=== PATIENT | male | born 1980 | race Two or more races ===

== ENCOUNTER 2018-06-20 16:23 | Emergency (ER) | payer OTHER ==
[~2018-06-20] VITALS: Ht 193 cm; Wt 85.7 kg
[2018-06-20] MEDS ORDERED: PROTONIX40 MG PO (23:32)
[2018-06-20] MEDS ORDERED: CARAFATE1 GM/10 ML PO (23:32)
[2018-06-20] MEDS ORDERED: CARAFATE1 GM PO (23:32)
[2018-06-20] MEDS ORDERED: ZOFRAN ODT4 MG SL (23:32)
[2018-06-20] MEDS ORDERED: PEPCID AC20 MG PO (23:32)
== END 2018-06-20 23:53 | disposition home or self-care (01) ==
LOC: ER 16:23
DX: K29.70 Gastritis, unspecified, without bleeding (principal); B37.0 Candidal stomatitis; R10.13 Epigastric pain

== ENCOUNTER 2020-01-04 13:47 | Outpatient (CLI) | payer OTHER ==
[~2020-01-04 13:47] MED LIST: CARAFATE1 GM PO; CARAFATE1 GM/10 ML PO; PEPCID AC20 MG PO; PROTONIX40 MG PO; ZOFRAN ODT4 MG SL
== END 2020-01-04 13:55 | disposition home or self-care (01) ==
LOC: LAB 13:47
PROVIDERS: ATTEND Pediatrics Neonatal-Perinatal Medicine
DX: Z20.828 Contact with and (suspected) exposure to other viral communicable diseases (principal)

== ENCOUNTER → 2025-02-09 | Emergency (ER) | payer OTHER ==
[~2025-02-09] MED LIST changes: +ACETAMINOPHEN500 M1 PO; +IPRAT-ALBUT 0.5-3 ML IH; +LEVALBUTER1.25 MG/3 IH; +LEVOFLOXACIN500 MG PO; +MUCINEX DM ER1 EAC1 PO
== END | disposition home or self-care (01) ==
LOC: ER 00:22
DX: K52.89 Other specified noninfective gastroenteritis and colitis (principal); R07.89 Other chest pain; Z20.822 Contact with and (suspected) exposure to COVID-19; E86.0 Dehydration; K21.9 Gastro-esophageal reflux disease without esophagitis